=== PATIENT | male | born 1980 | race Caucasian/White ===

== ENCOUNTER 2025-01-02 11:20 | Emergency (ER) | payer OTHER ==
--- OUTSIDE RECORDS SUMMARY | 2025-01-02 11:24 | XMS REPORT | Continuity of Care Document ---
Author Name Unknown Address [address] [place] [address] [facility] thconnect Address [address] [place] [address] Care Team Providers Care Security Business Analyst Name Role Phone [facility], [employer] [facility] Primary Care Physician U lizy [facility] [place] Attending Clinician Deanna APOLONIA Chahal Attending Clinician Unavailable Apolonia Munoz MD Attending Clinician [phone] Masha Shetty Attending Clinician [phone] Doctor Unassigned, [place] Attending Clinician U APOLONIA Bustillo Admitting Clinician Unavailable Payers Payer Name Policy Type Policy Number Effective Date Expirati on Date Source Problems Condition Name Condition Details Condition Category Status Onset Date Resolution Date Last Treatment Date Treating Clinician Comments Source Kidney stones Kidney stones Disease Active 2016-11 00:00: [facility] Morbid obesity with body mass index of 40.0-49.9 Morbid obesity with body mass index of 40.0-49.9 Disease Active 2016-11 00:00: 00 [facility] Kidney stone Kidney stone Disease Active 2016-11 00:00: 00 [facility] Morbid obesity with body mass index of 40.0-49.9 Morbid obesity with body mass index of 40.0-49.9 Disease Active 2016-11 00:00: 00 [facility] Allergies, Adverse Reactions, Alerts Allergy Name Allergy Type Status Severity Reaction(s) Onset Date Inactive Date Treating Clinician Comments Source NO KNOWN ALLERGIE S Drug Class Active [facility] Social History Social Habit Start Date Stop Date Quantity Comments Source History of tobacco use Cigarette Smoker [facility] 2024-01-04 00:00:00 2024-01-04 00:00:00 .14 /d [facility] History of Social function 2020-07-03 00:00:00 2020-07-03 00:00:00 [facility] Cigarette pack-years 2019-07-04 00:00:00 2019-07-04 00:00:00 [facility] Cigarettes smoked current (pack per day) - Reported 2019-07-04 00:00:00 2019-07-04 00:00:00 [facility] Tobacco use and exposure 2019-07-04 00:00:00 2019-07-04 00:00:00 Smokeless tobacco non-user [facility] Sex Assigned At 1980 00:00:00 1980 00:00:00 [facility] Smoking Status Start Date Stop Date Source Smokes tobacco daily 2019-07-04 00:00:00 [facility] Medications Ordered Medication Name Filled Medication Name Start Date Stop Date Current Medication? Ordering Clinician Indication Dosage Frequency Signature (SIG) Comments Components Source gabapentin 600 mg tablet 01-04 16:11: 51 Yes 600mg Take 600 mg by mouth at bedtime. [facility] gabapentin 600 mg tablet 07-04 18:16: 29 Yes 600mg Take 600 mg by mouth at bedtime. [facility] Polyethylen e Glycol 3350 (MIRALAX) 17 gram powder 11-28 00:00: 00 07-04 00:00 :00 No 2{packe t} Take 2 Packets by mouth every 2 (two) hours as needed for Constipati on for up to 20 doses. [facility] ibuprofen (MOTRIN IB) 200 mg tablet 11-28 00:00: 00 07-04 00:00 :00 No 400mg Take 2 tablets by mouth every 6 (six) hours as needed for Pain (scale 1-3) for up to 30 doses. [facility] Vital Signs Vital Name Observation Time Observation Value Comments S ource Respiratory rate 2024-01-05 01:00:00 12 /min [facility] Systolic blood pressure 2024-01-05 00:16:00 125 mm[Hg] [facility] Diastolic blood pressure 2024-01-05 00:16:00 87 mm[Hg] [facility] Heart rate 2024-01-05 00:16:00 73 /min [facility] Oxygen saturation in Arterial blood by Pulse oximetry 2024-01-05 00:16:00 93 /min [facility] Body temperature 2024-01-04 22:10:00 37 Zee [facility] Body height 2024-01-04 22:10:[address] [facility] Body weight 2024-01-04 22:10:[address] [facility] BMI 2024-01-04 22:10:00 34.00 kg/m2 [facility] Systolic blood pressure 2019-07-04 18:15:00 109 mm[Hg] [facility] Diastolic blood pressure 2019-07-04 18:15:00 74 mm[Hg] [facility] Heart rate 2019-07-04 18:15:00 84 /min [facility] Respiratory rate 2019-07-04 18:15:00 19 /min [facility] Oxygen saturation in Arterial blood by Pulse oximetry 2019-07-04 18:15:00 97 /min [facility] Procedures Procedure Date / Time Performed Performing Clinicia n Source EKG-12 LEAD 2024-01-05 01:02:[address] [facility] MAGNESIUM 2024-01-04 23:37:[address] [facility] TROPONIN I 2024-01-04 23:37:[address] [facility] COMP. METABOLIC PANEL (02890) 2024-01-04 23:37:00 Apolonia Munoz [facility] CBC WITH DIFF 2024-01-04 23:37:00 Apolonia Munoz [facility] XR CHEST 1 VW 2024-01-04 22:44:36 Apolonia Munoz [facility] CONSENT/REFUSAL FOR DIAGNOSIS AND TREATMENT 2024-01-04 21:57:45 Doctor Unassigned, [place] [facility] ASSIGNMENT OF BENEFITS 2019-07-04 18:01:34 Docto r Unassigned, [place] [facility] Encounters Start Date/Time End Date/Time Encounter Type Admission Type Attending [facility] Care Facility Care Department Encounter ID Source 2024-01-06 00:00:00 2024-01-06 00:00:00 Letter (Out) Crowder, [facility] MEDICAL OFFICE BUILDING [id number] [facility] 2024-01-04 16:12:00 2024-01-04 19:54:00 Emergency X APOLONIA MUNOZ [facility] ERT [id number] [facility] 2024-01-04 16:12:00 2024-01-04 19:54:00 Emergency Apolonia Munoz [facility] [id number] [id number] [facility] 2019-07-04 13:02:30 2019-07-04 13:46:11 Office Visit Masha Shetty [facility] Professio nal Building [id number] [id number] [facility] 2019-07-04 00:00:00 2019-07-04 00:00:00 Orders Only Doctor Unassigned, [place] [facility] [id number] [facility] Results Test Description Test Time Test Comments Results Result Co mments Source [facility] ([id number])2024-01-05 00:39:19* Test Item Value Reference Range Interpretation Comme nts NA (test code = 9672620351) 139 mmol/L 135-145 K (test code = 3416374302) 4.2 mmol/L 3.5-5.0 CL (test code = 3898768989) 110 mmol/L 98-108 H CO2 TOTAL (test code = 2652887955) 21 mmol/L 23-31 L AGAP (test code = 5152270292) 8 2-16 BUN (test code = 4532085174) 14 mg/dL 7-23 GLUCOSE (test code = 0922745326) 106 mg/dL 70-110 CREATININE (test code = 7451534160) 0.96 mg/dL 0.60-1.25 TOTAL BILI (test code = 7435966959) 0.5 mg/dL 0.1-1.1 CALCIUM (test code = 4745621666) 9.4 mg/dL 8.6-10.6 T PROTEIN (test code = 6881305436) 7.9 g/dL 6.3-8.2 ALBUMIN (test code = 7724509455) 4.5 g/dL 3.5-5.0 ALK PHOS (test code = 9463672721) 98 U/L 34-122 ALTv (test code = 1742-6) 39 U/L 5-50 AST(SGOT) (test code = 9367666348) 29 U/L 13-40 eGFR (test code = 37080-0) 100.0 mL/min/1.73m2 CKD-EPI eGFR (2020). Assuming creatinine has been stable day-to-day for at least three months, the eGFR indicates Category G1 (>= 90 mL/min/1.73 m2) Lab Interpretation (test code = 54729-4) [facility]normal [facility]24-[facility] 00:29:13* Test Item Value Reference Range Interpretation Comme nts MAGNESIUM (test code = 4988796915) 2.1 mg/dL 1.7-2.4 Lab Interpretation (test cod e = 75310-8) Normal [facility] with [id number] 00:10:32* Test Item Value Reference Range Interpretation Comme nts WBC (test code = 6690-2) 11.08 4.20-10.70 H RBC (test code = 789-8) 5.75 4.26-5.52 H HGB (test code = 718-7) 17.2 g/dL 12.2-16.4 H HCT (test code = 4544-3) 49.1 % 38.4-49.3 MCV (test code = 787-2) 85.4 fL 81.7-95.6 MCH (test code = 785-6) 29.9 pg 26.1-32.7 MCHC (test code = 786-4) 35.0 g/dL 31.2-35.0 RDW-SD (test code = 75852-8) 38.3 fL 38.5-51.6 L RDW-CV (test code = 788-0) 12.4 % 12.1-15.4 PLT (test code = 777-3) 256 150-328 MPV (test code = 26376-6) 9.9 fL 9.8-13.0 NRBC/100 WBC (test code = 1945105270) 0.0 0.0-10.0 NRBC x10^3 (test code = 8839442618) See_Comment [Automated messa ge] The system which generated this result transmitted reference range: 10*3/?L. The reference range was not used to interpret this result as normal/abnormal. GRAN MAT (NEUT) % (test code = 770-8) 73.2 % IMM GRAN % (test code = 1341424795) 0.30 % LYMPH % (test code = 736-9) 19.8 % MONO % (test code = 5905-5) 5.9 % EOS % (test code = 713-8) 0.4 % BASO % (test code = 706-2) 0.4 % GRAN MAT x10^3(ANC) (test code = 8708637229) 8.13 10*3/uL 1.99-6.95 H IMM GRAN x10^3 (test code = 5946958985) 0.03 10*3/uL 0.00-0.06 LYMPH x10^3 (test code = 731-0) 2.19 10*3/uL 1.09-3.23 MONO x10^3 (test code = 742-7) 0.65 10*3/uL 0.36-1.02 EOS x10^3 (test code = 711-2) 0.04 10*3/uL 0.06-0.53 L BASO x10^3 (test code = 704-7) 0.04 10*3/uL 0.01-0.09 Lab Interpretation (test code = 76462-1) Abnormal [facility] 1 [id number] 22:45:51HISTORY: Chest pain. TECHNIQUE: Portable AP view of the chest is obtained. No prior chestavailable for comparison. FINDINGS: No acute pneumonia. No pneumothorax or pleural effusion orpulmonary congestion detected. Cardiac size is within upper normal limits. CONCLUSIONS: No signs of acute cardiopulmonary disease.[facility]
--- NOTE | 2025-01-02 12:45 | RAD REPORT ---
EXAM: C Spine Wo Con HISTORY: PAIN COMPARISON: None TECHNIQUE: Multiple contiguous axial images were obtained in a CT of the cervical spine without IV co ntrast. Sagittal and coronal reformats were performed. One or more of the following dose reduction techniques were used: Automated exposure control, adjustment of the mA and kV according to patient si ze, and iterative reconstruction. Unless otherwise specified, incidental findings do not require dedicated imaging follow-up. FINDINGS: The vertebral bodies and intervertebral discs demonstrate normal height without fracture or subluxati on. Straightening of normal cervical lordosis which may be positional or secondary to muscle spasm. Mild multilevel degenerative changes are present most notably contributing to mild to moderate left n eural foraminal narrowing at C6-7 and mild right neural foraminal narrowing at C4-5. No prevertebral soft tissue swelling is seen. The posterior facets are well aligned. Normal alignment of the skull base with the cervical spine is seen. The lung apices are unremarkable. The cervical soft tissues are unremarkable. IMPRESSION: No evidence of acute osseous abnormality of the cervical spine. Straightening of normal lordosis which may be positional or secondary to muscle spasm. Degenerative changes as above.
[2025-01-02 13:15] LABS: Absolute Basophils 0.1 K/uL (0-0.5); Absolute Eosinophils 0.1 K/uL (0-0.5); Absolute Lymphocytes (CBC) 2.3 K/uL (0.7-4.9); Absolute Monocytes 0.8 K/uL (0.1-1.3); Absolute Neutrophil 7.7 K/uL (1.8-8.0); Basophils % 0.6 % (0-1.3); Eosinophils % 0.7 % (0-4.4); Hematocrit 52.9 % (39.6-49.0); Hemoglobin 18.9 g/dL (13.6-17.9); Lymphocytes % 20.7 % (15.3-44.8); MCH 30.3 pg (27.0-35.0); MCHC 35.7 g/dL (32.0-36.0); Monocytes % 7.8 % (3.3-12.3); Neutrophils % 70.2 % (41.7-73.7); Nucleated Red Blood Cells % 0.2 % (0-0); Platelets 244 thou/uL (152-406); RBC Red Blood Cell Count 6.22 M/uL (4.33-5.43); Red Cell Distribution Width 13.2 % (12.1-15.2)
[2025-01-02] MEDS ORDERED: NA CHLORIDE 0.9% 1,000 ML ONE (13:22)
[2025-01-02] MEDS ORDERED: KETOROLAC 30 MG/ML INJ ONE (13:22)
[2025-01-02] MEDS ORDERED: ONDANSETRON 4 MG/2 ML VIAL ONE (13:22)
[2025-01-02] MEDS ORDERED: HYDROMORPHONE HCL 1 MG/ML INJ ONE (13:22)
[2025-01-02] MEDS ORDERED: dexAMETHasone 10 MG/ML VIAL ONE (13:22)
[2025-01-02 13:36] LABS: ALT/SGPT 51 U/L (16-61); AST/SGOT 20 U/L (15-37); Albumin 4.4 g/dL (3.4-5.0); Albumin/Globulin Ratio 1.1 (1.1-1.8); Alkaline Phosphatase 108 U/L (45-117); Anion Gap 8.8 mEq/L (5.0-15.0); BUN Blood Urea Nitrogen 14 mg/dL (7-18); Bicarbonate 26 mEq/L (21-32); Bilirubin Total 0.8 mg/dL (0.2-1.0); Globulin 3.9 g/dL (2.3-3.5); Glomerular Filtration Rate 78 ml/min (=/>90); Glucose Level 94 mg/dL (74-106); Potassium 3.8 mEq/L (3.5-5.1); Protein, Total 8.3 g/dL (6.4-8.2); Sodium Level 139 mEq/L (136-145)
[2025-01-02 13:37] LABS: Troponin High Sensitivity < 3.0 pg/mL (<58.9)
--- NOTE | 2025-01-02 13:57 | ER ---
Nurse's Notes [facility] Name: Ron Maier Age: 44 yrs Sex: Male : 1980 Arrival Date: 01/02/2025 Time: 11:20 Bed 9 Private MD: Diagnosis: Strain of muscle, fascia and tendon at neck level, initial encounter;Cervical disc disorder with radiculopathy;Unspecified symptoms and signs involving the musculoskeletal system Presentation: 01/02 11:33 Chief complaint: Patient states: Left sided neck pain that radiates down to left arm cm10 onset 2 days ago. Pt states that he feels like his arm is broken.. Coronavirus screen: Client denies travel out of the [place] in the last 14 days. Ebola Screen: Patient denies travel to an Ebola-affected area in the 21 days before illness onset. Initial Sepsis Screen: Does the patient meet any 2 criteria? No. Patient's initial sepsis screen is negative. Does the patient have a suspected source of infection? No. Patient's initial sepsis screen is negative. Risk Assessment: Do you want to hurt yourself or someone else? Patient reports no desire to harm self or others. Onset of symptoms was December 31, 2024. 11:33 Method Of Arrival: Wheelchair cm10 11:33 Acuity: MILES 4 cm10 12:07 Acuity: MILES 3 iw Triage Assessment: 11:36 General: Appears uncomfortable, Behavior is calm, cooperative. Neuro: No deficits cm10 noted. Level of Consciousness is awake, alert, obeys commands, Oriented to person, place, time, situation, Appropriate for age. Respiratory: No deficits noted. Airway is patent Respiratory effort is even, unlabored, Respiratory pattern is regular, symmetrical. Historical: - Allergies: 11:35 Morphine; cm10 - Home Meds: 11:35 None [Active]; cm10 - PMHx: 11:35 None; cm10 - PSHx: 11:35 Spine; cm10 - Immunization history:: Adult Immunizations up to date. - Infectious Disease History:: Denies. - Social history:: Smoking status: Patient reports the use of cigarette tobacco products, denies chronic smoking, but will smoke occasionally. - Family history:: not pertinent. Screenin:02 [facility] ED Fall Risk Assessment (Adult) History of falling in the last 3 months, iw including since admission No falls in past 3 months (0 pts) Confusion or Disorientation No (0 pts) Intoxicated or Sedated No (0 pts) Impaired Gait No (0 pts) Mobility Assist Device Used No (0 pt) Altered Elimination No (0 pt) Score/Fall Risk Level 0 - 2 = Low Risk Oriented to surroundings, Maintained a safe environment. Abuse screen: Denies threats or abuse. Denies injuries from another. Nutritional screening: No deficits noted. Tuberculosis screening: No symptoms or risk factors identified. Assessment: 12:30 General: Appears uncomfortable, Behavior is agitated, anxious. Pain: Complains of pain iw in cervical spine. Neuro: Level of Consciousness is awake, alert, obeys commands, Oriented to person, place, time, situation, Moves all extremities. Cardiovascular: Patient's skin is warm and dry. Respiratory: Respiratory effort is even, unlabored, Respiratory pattern is regular. Derm: Skin is intact, is healthy with good turgor. Musculoskeletal: Range of motion: limited in cervical spine. 14:50 Reassessment: Patient appears in no apparent distress at this time. Patient and/or iw family updated on plan of care and expected duration. Pain level reassessed. Patient states feeling better. Vital Signs: 11:33 BP 151 / 91; Pulse 85; Resp 18; Temp 98.2; Pulse Ox 100% ; Weight 136.08 kg; Height 6 cm10 ft. 3 in. ; Pain 9/10; 11:33 Body Mass Index 37.50 (136.08 kg, 190.5 cm) cm10 11:33 Pain Scale: Adult cm10 ED Course: 11:23 Patient arrived in ED. mr 11:34 Jason King MD is Attending Physician. abner 11:35 Triage completed. cm10 11:35 Arm band placed on right wrist. Patient placed in waiting room. cm10 12:30 Patient has correct armband on for positive identification. Provided Education on: . iw 12:31 CT C Spine In Process Unspecified. EDMS 13:10 Comprehensive Metabolic Panel Sent. ty 13:10 CBC with Diff Sent. ty 13:10 Troponin High Sensitivity Sent. ty 13:10 Initial lab(s) drawn, by me, sent to lab. EKG done, by ED staff, reviewed by Jason King MD. Inserted saline lock: 20 gauge in right antecubital area, using aseptic technique. Blood collected. Flushed with 10 mL NS. 13:16 Dena Chen, RN is Primary Nurse. iw 13:56 Royce Manriquez MD is Referral Physician. [facility] 15:01 No provider procedures requiring assistance completed. IV discontinued, intact, iw bleeding controlled, No redness/swelling at site. Pressure dressing applied. Administered Medications: 13:30 Drug: Ondansetron IVP 4 mg IVP once; over 2 minutes Route: IVP; Site: right antecubital;iw 13:30 Drug: Ketorolac IVP 30 mg IVP once Route: IVP; Site: right antecubital; iw 13:30 Drug: Decadron - Dexamethasone IVP 10 mg IVP once Route: IVP; Site: right antecubital; iw 14:00 Follow up: Response: No adverse reaction iw 13:30 Drug: HYDROmorphone IVP 1 mg IVP once Route: IVP; Site: right antecubital; iw 14:50 Follow up: Response: No adverse reaction; Pain is decreased iw 13:30 Drug: NS 0.9% IV 1000 ml IV at 1000 ml once; to be given as a bolus over 60 minutes iw Route: IV; Rate: 1000 ml; Site: right antecubital; 14:30 Follow up: IV Status: Completed infusion iw Medication: 12:30 VIS not applicable for this client. iw Outcome: 13:56 Discharge ordered by . [facility] 15:02 Discharged to home ambulatory, iw 15:02 Condition: good 15:02 Discharge instructions given to patient, Instructed on discharge instructions, follow up and referral plans. medication usage, Demonstrated understanding of instructions, follow-up care, medications, Prescriptions given X 3, 15:03 Patient left the ED. iw Signatures: Dispatcher [employer] EDMS Jason King MD MD cha Rivera, Mary, Reg Reg mr Dena Chen, MITCH MEYER iw Jessica Treadwell RN RN cm10 Steve Gray Corrections: (The following items were deleted from the chart) 11:35 11:35 Allergies: No Known Allergies; cm10 cm10
--- NOTE | 2025-01-02 13:57 | EDPHYS ---
Physician Documentation [facility] Name: Ron Maier Age: 44 yrs Sex: Male : 1980 Arrival Date: 01/02/2025 Time: 11:20 Bed 9 Private MD: GATO Physician Jason King HPI: 01/02 13:04 This 44 yrs old Male presents to ER via Wheelchair with complaints of Neck abner pain. 13:04 The patient or guardian complains of decreased range of motion, pain. The symptoms are abner located diffusely. Onset: The symptoms/episode began/occurred last night. Context: The problem was sustained at home, The neck injury/problem resulted from from unknown cause. Associated signs and symptoms: Pertinent positives: bilateral arm pain. The pain radiates to the cervical spine. Modifying factors: The symptoms are alleviated by remaining still, the symptoms are aggravated by movement, pressure. Severity of symptoms: At their worst the symptoms were moderate, in the emergency department the symptoms are unchanged. It is unknown whether or not the patient has had similar symptoms in the past. Historical: - Allergies: 11:35 Morphine; cm10 - Home Meds: 11:35 None [Active]; cm10 - PMHx: 11:35 None; cm10 - PSHx: 11:35 Spine; cm10 - Immunization history:: Adult Immunizations up to date. - Infectious Disease History:: Denies. - Social history:: Smoking status: Patient reports the use of cigarette tobacco products, denies chronic smoking, but will smoke occasionally. - Family history:: not pertinent. ROS: 13:04 Constitutional: Negative for fever, chills, and weight loss, Eyes: Negative for injury, abner pain, redness, and discharge, ENT: Negative for injury, pain, and discharge, Cardiovascular: Negative for chest pain, palpitations, and edema, Respiratory: Negative for shortness of breath, cough, wheezing, and pleuritic chest pain, Abdomen/GI: Negative for abdominal pain, nausea, vomiting, diarrhea, and constipation, Back: Negative for injury and pain, : Negative for injury, bleeding, discharge, and swelling, Skin: Negative for injury, rash, and discoloration, Neuro: Negative for headache, weakness, numbness, tingling, and seizure, Psych: Negative for depression, anxiety, suicide ideation, homicidal ideation, and hallucinations, Allergy/Immunology: Negative for hives, rash, and allergies, Endocrine: Negative for neck swelling, polydipsia, polyuria, polyphagia, and marked weight changes, Hematologic/Lymphatic: Negative for swollen nodes, abnormal bleeding, and unusual bruising, 13:04 Neck: Positive for pain with movement, pain at rest, Exam: 13:04 Constitutional: This is a well developed, well nourished patient who is awake, alert, abner and in no acute distress. Head/Face: Normocephalic, atraumatic. Eyes: Pupils equal round and reactive to light, extra-ocular motions intact. Lids and lashes normal. Conjunctiva and sclera are non-icteric and not injected. Cornea within normal limits. Periorbital areas with no swelling, redness, or edema. ENT: Nares patent. No nasal discharge, no septal abnormalities noted. Tympanic membranes are normal and external auditory canals are clear. Oropharynx with no redness, swelling, or masses, exudates, or evidence of obstruction, uvula midline. Mucous membranes moist. Chest/axilla: Normal chest wall appearance and motion. Nontender with no deformity. No lesions are appreciated. Cardiovascular: Regular rate and rhythm with a normal S1 and S2. No gallops, murmurs, or rubs. Normal PMI, no JVD. No pulse deficits. Respiratory: Lungs have equal breath sounds bilaterally, clear to auscultation and percussion. No rales, rhonchi or wheezes noted. No increased work of breathing, no retractions or nasal flaring. Abdomen/GI: Soft, non-tender, with normal bowel sounds. No distension or tympany. No guarding or rebound. No evidence of tenderness throughout. Back: No spinal tenderness. No costovertebral tenderness. Full range of motion. Skin: Warm, dry with normal turgor. Normal color with no rashes, no lesions, and no evidence of cellulitis. MS/ Extremity: Pulses equal, no cyanosis. Neurovascular intact. Full, normal range of motion., bilateral aka Neuro: Awake and alert, GCS 15, oriented to person, place, time, and situation. Cranial nerves II-XII grossly intact. Motor strength 5/5 in all extremities. Sensory grossly intact. Cerebellar exam normal. Normal gait. Psych: Awake, alert, with orientation to person, place and time. Behavior, mood, and affect are within normal limits. 13:04 Neck: External neck: is normal, no acute changes, C-spine: no acute changes, ROM/movement: pain, limited range of motion, that is moderate, in any direction, Lymph nodes: no appreciated lymphadenopathy, 13:24 ECG was reviewed by the Attending Physician. [facility] Vital Signs: 11:33 BP 151 / 91; Pulse 85; Resp 18; Temp 98.2; Pulse Ox 100% ; Weight 136.08 kg; Height 6 cm10 ft. 3 in. ; Pain 9/10; 11:33 Body Mass Index 37.50 (136.08 kg, 190.5 cm) cm10 11:33 Pain Scale: Adult cm10 MDM: 11:34 Medical Screening Exam initiated [facility] 13:12 Differential diagnosis: C-Spine Fracture Cervical Disc Herniation Cervical Discogenic abner Pain Cervical Raiculopathy Cervical Spondylosis cervical strain, Degenerative Disc Disease Neck Contusion Spondylosis subluxation, torticollis. Data reviewed: vital signs, nurses notes, lab test result(s), EKG, radiologic studies, CT scan. Consideration of Admission/Observation Escalation of care including admission/observation considered. I considered the following discharge prescriptions or medication management in the emergency department Medications were administered in the Emergency Department. See MAR. Independent interpretation of the following test(s) in the Emergency Department EKG: See my EKG interpretation above. Test considered but Not performed: MRI: no mri c spine. Care significantly affected by the following chronic conditions: Obesity, chronic pain. Counseling: I had a detailed discussion with the patient and/or guardian regarding the historical points, exam findings, and any diagnostic results supporting the discharge/admit diagnosis, lab results, radiology results, the need for outpatient follow up, for definitive care, a family practitioner, a neurologist. 01/02 12:06 Order name: Troponin High Sensitivity; Complete Time: 13:56 [facility] 01/02 12:06 Order name: CBC with Diff; Complete Time: 13:56 [facility] 01/02 12:06 Order name: Comprehensive Metabolic Panel; Complete Time: 13:56 [facility] 01/02 12:06 Order name: CT C Spine; Complete Time: 13:03 [facility] 01/02 12:06 Order name: EKG; Complete Time: 12:06 [facility] 01/02 12:06 Order name: EKG - Nurse/Tech; Complete Time: 13:10 abner EC:24 Rate is 103 beats/min. Rhythm is regular. QRS [place] is Normal. [place] interval is normal. abner QRS interval is normal. QT interval is normal. No Q waves. T waves are Normal. No ST changes noted. Clinical impression: Sinus tachycardia. Interpreted by me. Reviewed by me. Administered Medications: 13:30 Drug: Ondansetron IVP 4 mg IVP once; over 2 minutes Route: IVP; Site: right antecubital;iw 13:30 Drug: Ketorolac IVP 30 mg IVP once Route: IVP; Site: right antecubital; iw 13:30 Drug: Decadron - Dexamethasone IVP 10 mg IVP once Route: IVP; Site: right antecubital; iw 14:00 Follow up: Response: No adverse reaction iw 13:30 Drug: HYDROmorphone IVP 1 mg IVP once Route: IVP; Site: right antecubital; iw 14:50 Follow up: Response: No adverse reaction; Pain is decreased iw 13:30 Drug: NS 0.9% IV 1000 ml IV at 1000 ml once; to be given as a bolus over 60 minutes iw Route: IV; Rate: 1000 ml; Site: right antecubital; 14:30 Follow up: IV Status: Completed infusion iw Disposition Summary: 01/02/25 13:56 Discharge Ordered Notes: Location: Home abner Problem: new abner Symptoms: have improved abner Condition: Stable abner Diagnosis - Strain of muscle, fascia and tendon at neck level, initial encounter abner - Cervical disc disorder with radiculopathy abner - Unspecified symptoms and signs involving the musculoskeletal system abner Followup: abner - With: Private Physician - When: 2 - 3 days - Reason: Recheck today's complaints, Continuance of care, Re-evaluation by your physician Followup: abner - With: Royce Manriquez MD - When: 2 - 3 days - Reason: Recheck today's complaints, Re-evaluation by your physician Discharge Instructions: - Discharge Summary Sheet abner - Cervical Radiculopathy abner - Musculoskeletal Pain abner - Cervical Radiculopathy, [id number] abner Forms: - Medication Reconciliation Form abner - Antibiotic Education abner - Prescription Opioid Use abner - Patient Portal Instructions abner - Leadership Thank You Letter abner Prescriptions: - acetaminophen-codeine 300-30 mg Oral tablet - take 2 tablet ORAL route every 6 hours as needed for pain; 20 tablet; Refills: abner 0, Product Selection Permitted - dexamethasone 4 mg Oral tablet - take 1 tablet ORAL route daily; 5 tablet; Refills: 0, Product Selection abner Permitted - Diclofenac Sodium 75 mg Oral tablet, delayed release (enteric coated) - take 1 tablet ORAL route 2 times per day; 20 tablet; Refills: 0, Product abner Selection Permitted - methocarbamol 750 mg Oral tablet - take 1 tablet ORAL route every 4 hours; 30 tablet; Refills: 0, Product abner Selection Permitted Signatures: Dispatcher [employer] Jason Camp MD MD cha Williams, Irene, RN RN Jessica Treadwell RN RN 10 Corrections: (The following items were deleted from the chart) 11:35 11:35 Allergies: No Known Allergies; 10 cm10
[2025-01-02 15:13] VITALS: BP 151/91; TEMP 98.2; O2SAT 100
--- NOTE | 2025-01-03 11:28 | EKG ---
Test Date: 2025-01-02 Test Time: 13:07:36 Bobbin Painter: YVON MEASUREMENT RESULTS: Intervals: Rate: 103 NV: 126 QRSD: 84 QT: 340 QTc: 445 [place]ilo: P: 36 NV: 126 QRS: -29 T: 34 INTERPRETIVE STATEMENTS: Sinus tachycardia Low voltage QRS Cannot rule out Anterior infarct, age undetermined Abnormal ECG No previous ECG available for comparison Electronically Signed On 01-03-25 11:26:07 [employer] WAXING MACHINE OPERATOR by Дмитрий Peralta
== END 2025-01-02 15:03 | disposition home or self-care (01) ==
LOC: ER 11:20
DX: S16.1XXA Strain of muscle, fascia and tendon at neck level, initial encounter (principal); M50.10 Cervical disc disorder with radiculopathy, unspecified cervical region; R29.91 Unspecified symptoms and signs involving the musculoskeletal system; F17.210 Nicotine dependence, cigarettes, uncomplicated
CPT/HCPCS: 85025; 36415; 84484; 80053; 72125; J1100; J1171; J2405; J7030; 93005